=== PATIENT | male | born 1985 | race Caucasian/White ===

== ENCOUNTER 2021-05-23 17:58 | Emergency (ER) | payer OTHER ==
[~2021-05-23] VITALS: Ht 167.6 cm; Wt 90.9 kg
[~2021-05-23 17:58] MED LIST: NOCURR
[2021-05-23] MEDS ORDERED: LIDOCAINE 5% TRANSDERMAL PATCH TD ONE (19:15)
[2021-05-23] MEDS ORDERED: CYCLOBENZAPRINE HCL 10 MG TABLET PO ONE (19:15)
[2021-05-23] MEDS: KETOROLAC TROMETHAMINE 30 MG/ML VIAL IM ONE ×2 (19:21→19:35)
[2021-05-23 19:35] VITALS: BP 135/80
== END 2021-05-23 20:26 | disposition home or self-care (01) ==
LOC: EMS 17:59
DX: M54.50 Low back pain, unspecified (principal); F17.210 Nicotine dependence, cigarettes, uncomplicated; F12.90 Cannabis use, unspecified, uncomplicated; V03.99XA Pedestrian with other conveyance injured in collision with car, pick-up truck or van, unspecified whether traffic or nontraffic accident, initial encounter; Y93.89 Activity, other specified; Y92.481 Parking lot as the place of occurrence of the external cause; Y99.8 Other external cause status
CPT/HCPCS: 99283; J1885